=== PATIENT | male | born 1950 | race Caucasian/White ===

== ENCOUNTER → 2016-10-24 | Outpatient (CLI) | payer MEDICARE, OTHER ==
--- NOTE | ~2016-10-24 | MR104 ---
[facility] A Service of [facility] & [facility] RADIOLOGY TEXT RESULTS PATIENT: JOSE HATHAWAY LOCATION: [facility] : 50 UNIT #: [id number] AGE: [address]: Christiano Campbell MD SEX: M ORDER DR: [id number] [facility] [address] [place], [place] [address] [id number] O MR#: [id number] Acc #: [id number] NAME: JOSE HATHAWAY : 1950 SEX: M STUDY DATE/TIME: 10/24/2016 8:41 UNIT: [facility] ROOM: STUDY DESCRIPTION: MR Knee Wo Contrast Rt Attending Physician: Christiano Campbell M.D. Referring Physician: Christiano Campbell M.D. Ordering Physician: Christiano Campbell M.D. Primary Care Physician: Mere Carrion M.D. MRI CENTER REPORT This report is preliminary unless electronic signature is present. EXAM MRI of the right knee, 10/24/2016. COMPARISON No correlative studies. HISTORY Order states medial meniscus tear, knee pain. History sheet states, medial knee pain after stepping in a depression 2 months ago. 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 Symptoms for 2 months. No knee surgery. FINDINGS There is a small effusion without a popliteal cyst. Patellar heights at the upper limits of normal. Patellar articular cartilage is normal. There is a 10 x 9 mm zone of grade 4 chondromalacia of the femoral trochlear groove (craniocaudal by transverse). There is underlying subchondral bone plate cystic change and posteriorly tracking marrow edema. Quadriceps and patellar tendons are intact. Cruciate ligaments are normal. The lateral meniscus, lateral collateral ligament complex, and popliteus tendon are normal. Articular cartilage of the lateral compartment is normal. There is a complex longitudinal tear in the posterior body and midbody of the medial meniscus. There is a longitudinal oblique undersurface tear component as well as an oblique radial component. There is a displaced meniscal flap extending into the medial tibial gutter. It measures 8 mm [facility] A Service of [facility] & [facility] RADIOLOGY TEXT RESULTS PATIENT: JOSE HATHAWAY [facility] UNIT #: [id number] AGE: [address]: Christiano Campbell MD SEX: M ORDER DR: craniocaudal and emanates from the undersurface of the periphery of the posterior body-midbody junction. The MCL is intact. Medial compartment articular cartilage is within normal limits. There is no marrow lesion, fracture, or a sizeable loose body. IMPRESSION 1. Complex longitudinal tear mid posterior body medial meniscus detailed above with an 8 mm peripherally and caudally displaced meniscal flap or fragment extending into the medial tibial gutter. Reactive corner marrow edema of the tibia. 2. 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 3. Small effusion. 4. Cruciate ligaments and lateral compartment are normal. 5. No fracture or loose body. Dictated by... Maame Rivera M.D. THIS IS AN ELECTRONICALLY VERIFIED REPORT Maame Rivera M.D. at 10/26/2016 8:49 PM SANAM/herman TD: 10/26/2016 13:46 JOB #: [id number] MRI CENTER REPORT Page 1 of 1 COPY
== END | disposition home or self-care (01) ==
LOC: CMRI 08:16
DX: M23.203 Derangement of unspecified medial meniscus due to old tear or injury, right knee (principal); M23.221 Derangement of posterior horn of medial meniscus due to old tear or injury, right knee; M94.261 Chondromalacia, right knee; M25.461 Effusion, right knee
CPT/HCPCS: 73721

== ENCOUNTER → 2016-12-01 | Outpatient (CLI) | payer MEDICARE, OTHER ==
--- NOTE | ~2016-12-01 | CR63 ---
[facility] A Service of [facility] & [facility] RADIOLOGY TEXT RESULTS PATIENT: JOSE HATHAWAY LOCATION: [facility] : 50 UNIT #: [id number] AGE: [address]: Christiano Campbell MD SEX: M ORDER DR: [id number] [facility] [address] [place], [place] [address] [id number] O MR#: [id number] Acc #: [id number] NAME: JOES HATHAWAY : 1950 SEX: M STUDY DATE/TIME: 12/01/2016 7:40 UNIT: [facility] ROOM: STUDY DESCRIPTION: CR Chest 2 View Attending Physician: Christiano Campbell M.D. Referring Physician: Christiano Campbell M.D. Ordering Physician: Christiano Campbell M.D. Primary Care Physician: Mere Carrion M.D. MEDICAL IMAGING REPORT This report is preliminary unless electronic signature is present EXAM PA and lateral chest INDICATION Preop meniscal tear surgery on right knee. History of sleep apnea. COMPARISON 01/19/2008 FINDINGS A PA and lateral view of the chest were obtained. The heart size and vascularity are normal and the lungs are clear. The bones are unremarkable. IMPRESSION No active disease. Dictated by... Dago Culver M.D. THIS IS AN ELECTRONICALLY VERIFIED REPORT Dago Culver M.D. at 12/01/2016 10:25 AM CLARICE/nhi TD: 12/01/2016 09:56 JOB #: [id number] MEDICAL IMAGING REPORT Page 1 of 1 COPY
--- NOTE | ~2016-12-01 | EKG ---
PATIENT: JOSE HATHAWAY UNIT #: [id number] Ventricular Rate: 60 BPM Atrial Rate: 60 BPM P-R Interval: 158 ms QRS Duration: 102 ms Q-T Interval: 444 ms QTC Calculation(Bezet): 444 ms P [place]: 0 degrees Calculated R [place]: 36 degrees Calculated T [place]: 34 degrees Diagnosis Line: Normal sinus rhythm Diagnosis Line: Normal ECG Diagnosis Line: No previous ECGs available Diagnosis Line: Confirmed by CYN POOLE MD ([id number]) on Diagnosis Line: 12/01/2016 3:21:08 PM INTERPRETING MD: ZULEMA RENTERIA
[2016-12-01 08:23] LABS: HEMATOCRIT 44.7 % (38.0-50.0); HEMOGLOBIN 14.9 gm/dL (13.0-16.0); MEAN CELL VOLUME 91.2 FL (83-96); MEAN CORPUSCULAR HEMOGLOBIN 30.3 PG (28-34); MEAN CORPUSCULAR HGB CONC 33.2 g/dL (30-36); MEAN PLATELET VOLUME 8.7 FL (6.5-11.5); RED BLOOD COUNT 4.91 X10e (3.90-5.60); RED CELL DISTRIBUTION WIDTH 13.5 % (11.0-15.5); WHITE BLOOD COUNT 7.6 X10e3 (4.0-10.5)
[2016-12-01 08:28] LABS: URINE APPEARANCE CLEAR; URINE BILIRUBIN NEG (NEG); URINE BLOOD NEG (NEG); URINE COLOR YELLOW; URINE GLUCOSE NEG (NEG); URINE KETONE NEG (NEG); URINE LEUKOCYTE ESTERASE NEG (NEG); URINE NITRATE NEG (NEG); URINE PROTEIN NEG (NEG); URINE SPECIFIC GRAVITY 1.027 (1.003-1.035)
[2016-12-01 08:42] LABS: URINE SOURCE CLEAN CATCH
[2016-12-01 09:34] LABS: BUN/CREATININE RATIO 23.33; CALCIUM SERUM 9.1 mg/dL (8.4-10.2); CREATININE SERUM 0.9 mg/dL (0.6-1.4); GLOM FILT RATE Estimated 88.7 mL/min (>60); POTASSIUM 4.5 mmol/L (3.5-5.1)
== END | disposition home or self-care (01) ==
LOC: CLAB 07:19
PROVIDERS: Orthopaedic Surgery
DX: Z01.818 Encounter for other preprocedural examination (principal); S83.241A Other tear of medial meniscus, current injury, right knee, initial encounter; M94.261 Chondromalacia, right knee
CPT/HCPCS: 36415; 71020; 80048; 81003; 85027; 93005